=== PATIENT | female | born 1940 | race Caucasian/White ===

== ENCOUNTER 2018-04-16 10:02 | Outpatient (CLI) | payer MEDICARE ==
--- NOTE | 2018-04-16 11:02 | RAD ---
THREE VIEWS LUMBAR SPINE INCLUDING FLEXION AND EXTENSION VIEWS: DATE: 04/16/18. HISTORY: Back pain with radiation of pain into buttocks. COMPARISON: 06/06/15. FINDINGS: Multilevel degenerative changes are seen throughout the lumbar spine. Prominent osteophytes are seen anteriorly as well as posteriorly. There is slight central height loss of the superior end plates o f the upper lumbar vertebral bodies, but this is a stable finding and may be related to degenerative changes as opposed to actual compression fractures. Nevertheless, this is an overall stable finding from the study in 2014. There is narrowing of the intervertebral disk spaces at all levels. Laminec ivette defect is again seen at L3 with prominent facet degenerative changes at multiple levels. No obv ious fracture or subluxation is seen. Vascular calcifications are seen in the abdominal aorta. IMPRESSION: 1. Multilevel degenerative change of the lumbar spine which have not significantly changed when comp ared to study in 2014, although anterior osteophytes are slightly more prominent. 2. Stable laminectomy at L3. POS: [facility]
== END 2018-04-16 10:03 | disposition home or self-care (01) ==
LOC: TBSIIMAG 10:02
PROVIDERS: ATTEND Neurological Surgery
DX: M48.061 Spinal stenosis, lumbar region without neurogenic claudication (principal); M47.896 Other spondylosis, lumbar region; Z98.890 Other specified postprocedural states
CPT/HCPCS: 72100

== ENCOUNTER 2018-05-04 07:55 | Outpatient (CLI) | payer MEDICARE ==
--- NOTE | 2018-05-04 10:41 | MRI ---
MRI LUMBAR SPINE WITH AND WITHOUT CONTRAST: INDICATIONS: Lumbar radiculopathy. COMPARISON: MRI lumbar spine dated 10/19/2014. TECHNIQUE: Multiplanar, multisequential images of the lumbar spine are obtained. Post contrast images are obtai sole with the administration of 15 mL of MultiHance IV. FINDINGS: The lumbar vertebrae maintain height and alignment. Moderate degenerative changes are seen throughou t the lumbar spine with prominent anterior and lateral osteophytes. Degenerative disk changes are se en at all levels of the lumbar spine. Degenerative endplate changes are again noted. Findings have not significantly changed when compared to the 2015 study. At T11-T12, there is a broad-based disk bulge/ protrusion, which impinges on and mildly indents the a nterior conus. Facet hypertrophy with moderate central canal stenosis, similar to the prior exam. At T12-L1, diffuse disk bulge flattens the thecal sac. Facet hypertrophy. Moderate central canal st enosis. Not significantly changed from prior exam. At L1-L2, mild broad-based disk bulge. Facet hypertrophy. Mild to moderate central canal stenosis, not significantly changed. Right foraminal narrowing secondary to disk bulge and hypertrophic change . At L2-L3, diffuse disk bulge mildly flattens the anterior thecal sac. Facet hypertrophy. Posterior laminectomy change. No significant central canal stenosis. Mild bilateral foraminal narrowing. At L3-L4, there is a broad-based disk bulge. There is evidence of a prior diskectomy procedure with enhancement along the posterior margin of this disk. There are posterior laminectomy changes. Facet hypertrophy is again noted. Disk osteophytes complex projects to the left, into the foramina, and l aterally to the left. There is left foraminal stenosis, similar to the prior exam. Mild right alvaro inal narrowing as well. Mild central canal stenosis is stable. At L4-L5, broad-based disk bulge. Facet and ligamentous hypertrophy. Moderate to severe central can al stenosis and bilateral foraminal narrowing secondary to the diffuse disk bulge and facet hypertrop hy. At L5-S1, mild disk bulge. Disk osteophyte complex projects laterally on both sides, more prominent on the right. There appears to be contact and possible displacement of the lateral right L5 nerve ro ot due to this complex. Facet hypertrophy. No significant central canal stenosis. Bilateral forami nal encroachment. IMPRESSION: 1. Multilevel degenerative disk changes and postoperative changes, as described above. Central maria r l stenosis is most pronounced at L4-L5. Left foraminal stenosis is prominent at L3-L4. See descript ion at each level above. 2. 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 POS: [facility]
[2018-05-04] MEDS ORDERED: Gadobenate Dimeglumine 529 MG/1 ML (20ML VIAL) ONE (10:51)
--- NOTE | 2018-05-04 11:57 | RAD ---
NEUTRAL FLEXION AND EXTENSION LATERAL IMAGING OF THE LUMBAR SPINE: DATE: 05/04/18. COMPARISON: 04/16/18. HISTORY: Radiculopathy. FINDINGS: The neutral lateral examination demonstrates mild anterolisthesis at L3-4 measuring approximately 4 m m and at L5-S1 measuring approximately 4 mm. There is multilevel lower lumbar spine facet hypertroph ic change. Neutral lateral imaging demonstrates extensive disk space narrowing and anterior osteophy te formation throughout the lumbar spine, most prominent at T12-L1, L3-4, and L4-5. With flexion, an terolisthesis of L5 on S1 measures approximately 9 mm and anterolisthesis of L3 on L4 measures approx imately 6 mm. Extension imaging demonstrates no anterolisthesis at L3-4 and demonstrates 3-4 mm of a nterolisthesis of L5 on S1. IMPRESSION: Multilevel degenerative change seen within the lumbar spine. Multilevel anterolisthesis is seen, mos t prominent at the L5-S1 level, particularly upon flexion. POS: [facility]
== END 2018-05-04 07:56 | disposition home or self-care (01) ==
LOC: MRI 07:55
PROVIDERS: ATTEND Neurological Surgery
DX: M47.26 Other spondylosis with radiculopathy, lumbar region (principal); M43.17 Spondylolisthesis, lumbosacral region; M48.061 Spinal stenosis, lumbar region without neurogenic claudication; M99.83 Other biomechanical lesions of lumbar region; N28.9 Disorder of kidney and ureter, unspecified; Z98.890 Other specified postprocedural states
CPT/HCPCS: 72100; 72158; A9579

== ENCOUNTER 2018-06-02 13:29 | Outpatient (CLI) | payer MEDICARE ==
--- NOTE | 2018-06-02 12:40 | CT ---
PELVIC CT WITHOUT CONTRAST: HISTORY: Abnormal MRI. Back pain when walking or standing. Possible hole in the sacrum. Previous surgery. COMPARISON: None. CORRELATION: Lumbar spine MRI from 05/04/2018. FINDINGS: The visualized distal lumbar spine and lumbosacral junction are grossly unremarkable, in terms of fra cture. There is vacuum disk phenomenon at L4-L5, with resultant moderate central canal stenosis. Th ere is degenerative change at L5-S1 without high grade central canal stenosis. The neural foramina a ppear to be mildly narrowed. The sacrum appears to be intact. The sacral ala are preserved. No evidence of a fracture. No evide nce of a destructive process. There is mild hypertrophy of the posterior elements at L4-L5 and at L5 -S1. Presacral fat is preserved. Diverticulosis in the sigmoid colon. No diverticulitis. There is appropriate fat attenuation in the sacral neural foramina. 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 IMPRESSION: Unremarkable sacrum/pelvis CT. No acute abnormality. No evidence of a hole or fracture. Degenerati ve changes, as described above. POS: [facility]
--- NOTE | 2018-06-02 14:27 | NM ---
RADIONUCLIDE BONE SCAN: HISTORY: Low back pain. FINDINGS: Heterogeneously increased uptake involves each hand, sacroiliac joint, acromioclavicular joint, the l eft foot, and throughout the thoracolumbar spine, most noticeably at the left L3-4 facet. Decreased uptake of the mouth has the appearance of dental hardware. Some uptake remains within the urinary bl adder. IMPRESSION: Degenerative-type pattern of uptake involving the appendicular skeleton and axial spine. No aggressi ve process is apparent. POS: [facility]
== END 2018-06-02 13:30 | disposition home or self-care (01) ==
LOC: CT 13:29
PROVIDERS: ATTEND Neurological Surgery
DX: R22.2 Localized swelling, mass and lump, trunk (principal); M47.897 Other spondylosis, lumbosacral region
CPT/HCPCS: 72192; 78306; A9503